=== PATIENT | male | born 1990 | race Caucasian/White ===

== ENCOUNTER → 2017-09-28 | Outpatient (CLI) | payer BC ==
[~2017-09-28] MED LIST: HYDMOR2 PO; IBUP800 PO; Percocet 5-3251 EACH PO; Prednisone20 MG PO
== END ==
LOC: LAB SHORT 12:30 → LAB 12:30
DX: L08.9 Local infection of the skin and subcutaneous tissue, unspecified (principal)
CPT/HCPCS: 87070; 87205

== ENCOUNTER 2021-02-13 13:15 | Emergency (ER) | payer OTHER ==
[~2021-02-13] VITALS: Ht 170.2 cm; Wt 77.1 kg
== END 2021-02-13 14:25 | disposition home or self-care (01) ==
LOC: ER 13:15
DX: S51.812A Laceration without foreign body of left forearm, initial encounter (principal); W26.0XXA Contact with knife, initial encounter; Y93.89 Activity, other specified
CPT/HCPCS: 12002; 99282

== ENCOUNTER → 2022-04-09 | Outpatient (CLI) | payer OTHER, BC | END | disposition home or self-care (01) | LOC: LAB 12:30 → LAB SHORT 12:30 | DX: L08.9 Local infection of the skin and subcutaneous tissue, unspecified (principal) | CPT/HCPCS: 87070; 87205 ==